=== PATIENT | male | born 1945 | race Caucasian/White ===

== ENCOUNTER 2024-04-06 17:21 | Inpatient (IN) | payer MEDICARE ==
[~2024-04-06] VITALS: Ht 167.6 cm; Wt 41.8 kg
[2024-04-06] MEDS ORDERED: HUMALOG100 UNIT/1 SC (17:51)
[2024-04-06] MEDS ORDERED: SYNTHROID25 MCG PO (17:52)
[2024-04-06] MEDS ORDERED: VAZALORE81 MG PO (17:52)
[2024-04-06] MEDS ORDERED: FLOMAX0.4 MG PO (17:52)
[2024-04-06] MEDS ORDERED: COZAAR25 M1 PO (17:53)
[2024-04-06] MEDS ORDERED: PROSCAR5 M1 PO (17:53)
[2024-04-06] MEDS ORDERED: LIPITOR40 MG PO (17:53)
[2024-04-06] MEDS ORDERED: COLACE 2-IN-11 EACH PO (17:55)
[2024-04-06] MEDS ORDERED: AVAPRO75 MG PO (17:56)
[2024-04-06] MEDS ORDERED: CALCIUM MAGNES1 EACH PO (17:56)
[2024-04-06] MEDS ORDERED: CREON 3000 PO (17:57)
[2024-04-06] MEDS ORDERED: CIALIS5 MG PO (17:57)
[2024-04-06] MEDS ORDERED: UROXATRAL10 MG PO (17:57)
[2024-04-06] MEDS ORDERED: OMEGA 3 1,0001 EACH PO (17:58)
[2024-04-06] MEDS ORDERED: METFORMIN HYDR500 MG PO (17:58)
[2024-04-06] MEDS ORDERED: MELATONIN1 MG PO (17:59)
[2024-04-06 22:55] VITALS: BP 127/78
[2024-04-06] MEDS ORDERED: Magnesium Hydroxide 30 ML UDC PO PRN (23:50)
[2024-04-06] MEDS ORDERED: ACETAMINOPHEN 325 MG TAB PO PRN (23:50)
[2024-04-06] MEDS ORDERED: MG-AL HYDROXIDE/SIMETICONE 30 ML UDC PO PRN (23:50)
[2024-04-06] MEDS ORDERED: Menthol/Zinc Oxide 4 GM THIN T PRN (23:55)
[2024-04-07] MEDS ORDERED: LEVOTHYROXINE25 MCG PO (00:04)
[2024-04-07] MEDS ORDERED: PROSCAR5 M1 PO (00:05)
[2024-04-07] MEDS ORDERED: DEXTROSE 10 % IN WATER 250 ML IV PRN (00:05)
[2024-04-07] MEDS ORDERED: LIPITOR40 MG PO (00:05)
[2024-04-07] MEDS ORDERED: ACETAMINOPHEN325 M2 PO (00:31)
[2024-04-07] MEDS ORDERED: ASPIRIN81 M1 PO (00:37)
[2024-04-07] MEDS ORDERED: ALFUZOSIN HCL E10 MG PO (00:37)
[2024-04-07] MEDS ORDERED: AMLODIPINE BESYL5 MG PO (00:37)
[2024-04-07] MEDS ORDERED: ATIVAN1 MG PO (00:38)
[2024-04-07] MEDS ORDERED: CALCIUM 600+D1 EAC4 PO (00:40)
[2024-04-07] MEDS ORDERED: CREON DR 36,001 EAC1 PO (00:40)
[2024-04-07] MEDS ORDERED: DEPAKOTE250 MG PO (00:41)
[2024-04-07] MEDS ORDERED: EXELON1 EAC1 T (00:42)
[2024-04-07] MEDS ORDERED: DEPAKOTE500 M2 PO (00:42)
[2024-04-07] MEDS ORDERED: IRON325 M3 PO (00:43)
[2024-04-07] MEDS ORDERED: OMEGA 3-6-9 11200 MG PO (00:44)
[2024-04-07] MEDS ORDERED: MIRALAX POWDER17 G1 PO (00:45)
[2024-04-07] MEDS ORDERED: GLIPIZIDE5 M1 PO (00:45)
[2024-04-07] MEDS ORDERED: MELATONIN5 M1 SL (00:46)
[2024-04-07] MEDS ORDERED: LOPRESSOR25 MG PO (00:47)
[2024-04-07] MEDS ORDERED: NAMENDA-28 PO (00:48)
[2024-04-07] MEDS ORDERED: PROTONIX40 MG PO (00:49)
[2024-04-07] MEDS ORDERED: PLAVIX75 M1 PO (00:49)
[2024-04-07] MEDS ORDERED: EFFER-K25 MEQ PO (00:52)
[2024-04-07] MEDS ORDERED: Synthroid,Levo25 MCG PO (00:53)
[2024-04-07] MEDS ORDERED: RISPERDAL0.5 MG PO (00:53)
[2024-04-07] MEDS ORDERED: VITAMIN C1000 M5 PO (00:54)
[2024-04-07] MEDS ORDERED: INSULIN LISPRO 1 UNIT/0.01 ML SQ SCH (07:30)
[2024-04-07 08:00] LABS: BASO % 0.2 % (0.0-1.0); EOS # 0.1 10*3/uL (0.0-0.4); EOS % 1.1 % (1.0-4.0); LYMPH # 0.7 10*3/uL (1.3-4.4); LYMPH % 14.6 % (27.0-41.0); MEAN CELL VOLUME 95.7 fl (80.0-94.0); MEAN CORPUSCULAR HGB 31.1 pg (27.0-31.0); MEAN CORPUSCULAR HGB CONC 32.5 g/dl (33.0-37.0); MEAN PLATELET VOLUME 10.4 fl (9.6-12.3); MONO # 0.5 10*3/uL (0.1-1.0); MONO % 10.6 % (3.0-9.0); NEUT # 3.3 10*3/uL (2.3-7.9); NEUT % 73.1 % (47.0-73.0); PLATELET COUNT AUTOMATED 141 10*3/uL (130-400); RED BLOOD COUNT 3.76 10*6/uL (4.50-5.90); RED CELL DISTRI WIDTH 15.5 % (0-14.5); WHITE BLOOD COUNT 4.5 10*3/uL (4.8-10.8)
[2024-04-07 08:42] LABS: ALKALINE PHOSPHATASE 80 U/L (46-116); BUN 28 mg/dl (9-23); CHLORIDE 105 mmol/L (98-107); CHOLESTEROL 151 mg/dL (<200); LDL CHOLESTEROL 84 mg/dL (9-159); POTASSIUM 3.6 mmol/L (3.4-5.1); SGPT/ALT 14 U/L (5-49); TOTAL PROTEIN 6.8 gm/dL (6.0-8.0); TRIGLYCERIDES 61 mg/dl (<150)
[2024-04-07 08:48] LABS: VITAMIN D, 25-HYDROXY 31.1 ng/mL (30-100)
[2024-04-07] MEDS ORDERED: DIVALPROEX (DR) 250 MG TAB PO SCH (09:00)
[2024-04-07] MEDS ORDERED: RISPERIDONE 0.5 MG TAB PO SCH (09:00)
[2024-04-07] MEDS ORDERED: Memantine Hydrochloride 10 MG TAB PO SCH (09:00)
[2024-04-07] MEDS ORDERED: RIVASTIGMINE 13.3 MG/24 HR TDM T SCH (09:00)
[2024-04-07] MEDS ORDERED: LORazepam 1 MG TAB PO PRN (10:30)
[2024-04-07 20:00] VITALS: BP 135/84
[2024-04-07] MEDS ORDERED: DIVALPROEX (DR) 500 MG TAB PO SCH (21:00)
[2024-04-07] MEDS ORDERED: Metoprolol Tartrate 25 MG TAB PO SCH (21:00)
[2024-04-08 07:47] VITALS: BP 123/82
[2024-04-08] MEDS ORDERED: ASCORBIC ACID 500 MG TAB PO SCH (09:00)
[2024-04-08] MEDS ORDERED: ALFUZOSIN HYDROCHLORIDE 10 MG PO SCH ×2 (09:00)
[2024-04-08] MEDS ORDERED: Levothyroxine Sodium 25 MCG TAB PO SCH (09:00)
[2024-04-08] MEDS ORDERED: Pantoprazole Sodium 40 MG TAB PO SCH (09:00)
[2024-04-08] MEDS ORDERED: Fish Oil 500 MG CAP PO SCH (09:00)
[2024-04-08] MEDS ORDERED: CALCIUM CARBONATE/VITAMIN D3 500 MG/200 IU TABLET PO SCH (09:00)
[2024-04-08] MEDS ORDERED: FINASTERIDE 5 MG TAB PO SCH (09:00)
[2024-04-08] MEDS ORDERED: ASPIRIN ENTERIC COATED 81 MG TAB PO SCH (09:00)
[2024-04-08] MEDS ORDERED: amLODIPine besylate 5 MG TAB PO SCH (09:00)
[2024-04-08] MEDS ORDERED: Clopidogrel Hydrogen Sulfate 75 MG TAB PO SCH (09:00)
[2024-04-08] MEDS ORDERED: ATORVASTATIN CALCIUM 40 MG TABLET PO SCH (09:00)
[2024-04-08 20:00] VITALS: BP 121/75
[2024-04-08] MEDS ORDERED: RAMELTEON 8 MG TAB PO SCH (21:00)
[2024-04-09] MEDS ORDERED: FERROUS SULFATE 325 MG TAB PO SCH (10:00)
[2024-04-09 20:00] VITALS: BP 103/60
[2024-04-10 07:52] VITALS: BP 102/76
[2024-04-10 20:00] VITALS: BP 105/67
[2024-04-10] MEDS ORDERED: RISPERIDONE 1 MG TAB PO SCH (21:00)
[2024-04-11 08:29] VITALS: BP 117/78
[2024-04-11] MEDS ORDERED: RISPERIDONE 0.5 MG TAB PO SCH (09:00)
[2024-04-11 20:00] VITALS: BP 130/64
[2024-04-12] MEDS ORDERED: Levothyroxine Sodium 25 MCG TAB PO SCH (06:00)
[2024-04-12 06:14] LABS: ALKALINE PHOSPHATASE 66 U/L (46-116); BUN 22 mg/dl (9-23); CHLORIDE 105 mmol/L (98-107); POTASSIUM 3.8 mmol/L (3.4-5.1); SGPT/ALT 12 U/L (5-49); TOTAL PROTEIN 5.6 gm/dL (6.0-8.0)
[2024-04-12 06:27] LABS: BASO % 1.1 % (0.0-1.0); EOS % 1.5 % (1.0-4.0); HEMATOCRIT 31.6 % (42.0-52.0); LYMPH # 0.7 10*3/uL (1.3-4.4); LYMPH % 28.4 % (27.0-41.0); MEAN CELL VOLUME 97.2 fl (80.0-94.0); MEAN CORPUSCULAR HGB 30.8 pg (27.0-31.0); MEAN CORPUSCULAR HGB CONC 31.6 g/dl (33.0-37.0); MEAN PLATELET VOLUME 10.8 fl (9.6-12.3); MONO # 0.5 10*3/uL (0.1-1.0); MONO % 18.8 % (3.0-9.0); NEUT # 1.3 10*3/uL (2.3-7.9); NEUT % 49.8 % (47.0-73.0); PLATELET COUNT AUTOMATED 129 10*3/uL (130-400); RED BLOOD COUNT 3.25 10*6/uL (4.50-5.90); RED CELL DISTRI WIDTH 15.9 % (0-14.5); WHITE BLOOD COUNT 2.6 10*3/uL (4.8-10.8)
[2024-04-12 07:17] VITALS: BP 111/61
[2024-04-12 20:00] VITALS: BP 135/70
[2024-04-13 08:00] VITALS: BP 106/52
[2024-04-13 20:00] VITALS: BP 105/56
[2024-04-14 08:00] VITALS: BP 103/54
[2024-04-14 20:00] VITALS: BP 108/68
[2024-04-15 08:09] VITALS: BP 96/59
[2024-04-15 11:16] VITALS: BP 109/59
[2024-04-15 20:00] VITALS: BP 102/50
[2024-04-16 08:00] VITALS: BP 116/74
[2024-04-16] MEDS ORDERED: MEMANTINE HCL10 MG PO (09:21)
[2024-04-16] MEDS ORDERED: RIVASTIGMINE1 EAC2 T (09:21)
[2024-04-16] MEDS ORDERED: RISPERIDONE0.5 MG PO (09:21)
[2024-04-16] MEDS ORDERED: RISPERDAL1 M1 PO (09:21)
== END 2024-04-16 13:05 | DRG 57 ==
LOC: 3N 17:21
PROVIDERS: Nurse Practitioner; ADMIT Psychiatry & Neurology Psychiatry; ATTEND Psychiatry & Neurology Psychiatry
DX: G30.9 Alzheimer's disease, unspecified (principal); F02.818 Dementia in other diseases classified elsewhere, unspecified severity, with other behavioral disturbance; E11.65 Type 2 diabetes mellitus with hyperglycemia; F23 Brief psychotic disorder; F34.9 Persistent mood [affective] disorder, unspecified; D53.9 Nutritional anemia, unspecified; F41.1 Generalized anxiety disorder; I10 Essential (primary) hypertension; E78.5 Hyperlipidemia, unspecified; E03.9 Hypothyroidism, unspecified; E11.51 Type 2 diabetes mellitus with diabetic peripheral angiopathy without gangrene; E78.2 Mixed hyperlipidemia; D72.819 Decreased white blood cell count, unspecified; N40.0 Benign prostatic hyperplasia without lower urinary tract symptoms; Z00.8 Encounter for other general examination

== ENCOUNTER 2024-04-06 17:27 | Emergency (ER) | payer MEDICARE ==
[~2024-04-06] VITALS: Ht 185.4 cm
[2024-04-06] MEDS ORDERED: HUMALOG100 UNIT/1 SC (17:51)
[2024-04-06] MEDS ORDERED: FLOMAX0.4 MG PO (17:52)
[2024-04-06] MEDS ORDERED: SYNTHROID25 MCG PO (17:52)
[2024-04-06] MEDS ORDERED: VAZALORE81 MG PO (17:52)
[2024-04-06] MEDS ORDERED: COZAAR25 M1 PO (17:53)
[2024-04-06] MEDS ORDERED: LIPITOR40 MG PO (17:53)
[2024-04-06] MEDS ORDERED: PROSCAR5 M1 PO (17:53)
[2024-04-06] MEDS ORDERED: COLACE 2-IN-11 EACH PO (17:55)
[2024-04-06] MEDS ORDERED: AVAPRO75 MG PO (17:56)
[2024-04-06] MEDS ORDERED: CALCIUM MAGNES1 EACH PO (17:56)
[2024-04-06] MEDS ORDERED: CIALIS5 MG PO (17:57)
[2024-04-06] MEDS ORDERED: UROXATRAL10 MG PO (17:57)
[2024-04-06] MEDS ORDERED: CREON 3000 PO (17:57)
[2024-04-06] MEDS ORDERED: OMEGA 3 1,0001 EACH PO (17:58)
[2024-04-06] MEDS ORDERED: METFORMIN HYDR500 MG PO (17:58)
[2024-04-06] MEDS ORDERED: MELATONIN1 MG PO (17:59)
[2024-04-06 18:09] LABS: BASO % 0.4 % (0.0-1.0); EOS % 0.4 % (1.0-4.0); HEMATOCRIT 32.5 % (42.0-52.0); LYMPH # 0.6 10*3/uL (1.3-4.4); LYMPH % 12.3 % (27.0-41.0); MONO # 0.6 10*3/uL (0.1-1.0); MONO % 11.5 % (3.0-9.0); NEUT # 3.6 10*3/uL (2.3-7.9); PLATELET COUNT AUTOMATED 119 10*3/uL (130-400); RED BLOOD COUNT 3.35 10*6/uL (4.50-5.90); RED CELL DISTRI WIDTH 15.5 % (0-14.5); WHITE BLOOD COUNT 4.8 10*3/uL (4.8-10.8)
[2024-04-06 18:19] LABS: ACT PARTIAL THROMBO TIME 24.8 SECONDS (20.0-32.1)
[2024-04-06 18:29] LABS: BILIRUBIN Negative (Negative); BLOOD Negative (Negative); CLARITY Clear (Clear); COLOR Yellow (Yellow); GLUCOSE Negative (Negative); KETONE Trace (Negative); LEUKO ESTERASE Negative (Negative); NITRITE Negative (Negative); PH 5.5 (4.5-8.0)
[2024-04-06 18:30] LABS: ALKALINE PHOSPHATASE 76 U/L (46-116); BUN 36 mg/dl (9-23); CHLORIDE 108 mmol/L (98-107); POTASSIUM 3.7 mmol/L (3.4-5.1); SGPT/ALT 14 U/L (5-49); TOTAL PROTEIN 6.2 gm/dL (6.0-8.0)
[2024-04-06 18:31] LABS: ETHYL ALCOHOL < 3.0 mg/dl (<3)
[2024-04-06 18:37] LABS: URINE AMPHETAMINES Negative (1000ng/ml); URINE BARBITURATES Negative (200ng/ml); URINE BENZODIAZEPINES Negative (200ng/ml); URINE CANNABINOIDS (THC) Negative (50ng/ml); URINE COCAINE Negative (300ng/ml); URINE METHADONE Negative (300ng/ml); URINE OPIATES Negative (300ng/ml); URINE PHENCYCLIDINE Negative (25ng/ml)
[2024-04-06 18:39] LABS: CALCIUM OXALATE CRYSTALS Trace; MUCOUS 2+
[2024-04-07] MEDS ORDERED: LEVOTHYROXINE25 MCG PO (00:04)
[2024-04-07] MEDS ORDERED: LIPITOR40 MG PO (00:05)
[2024-04-07] MEDS ORDERED: PROSCAR5 M1 PO (00:05)
[2024-04-07] MEDS ORDERED: ACETAMINOPHEN325 M2 PO (00:31)
[2024-04-07] MEDS ORDERED: ALFUZOSIN HCL E10 MG PO (00:37)
[2024-04-07] MEDS ORDERED: AMLODIPINE BESYL5 MG PO (00:37)
[2024-04-07] MEDS ORDERED: ASPIRIN81 M1 PO (00:37)
[2024-04-07] MEDS ORDERED: ATIVAN1 MG PO (00:38)
[2024-04-07] MEDS ORDERED: CREON DR 36,001 EAC1 PO (00:40)
[2024-04-07] MEDS ORDERED: CALCIUM 600+D1 EAC4 PO (00:40)
[2024-04-07] MEDS ORDERED: DEPAKOTE250 MG PO (00:41)
[2024-04-07] MEDS ORDERED: EXELON1 EAC1 T (00:42)
[2024-04-07] MEDS ORDERED: DEPAKOTE500 M2 PO (00:42)
[2024-04-07] MEDS ORDERED: IRON325 M3 PO (00:43)
[2024-04-07] MEDS ORDERED: OMEGA 3-6-9 11200 MG PO (00:44)
[2024-04-07] MEDS ORDERED: MIRALAX POWDER17 G1 PO (00:45)
[2024-04-07] MEDS ORDERED: GLIPIZIDE5 M1 PO (00:45)
[2024-04-07] MEDS ORDERED: MELATONIN5 M1 SL (00:46)
[2024-04-07] MEDS ORDERED: LOPRESSOR25 MG PO (00:47)
[2024-04-07] MEDS ORDERED: NAMENDA-28 PO (00:48)
[2024-04-07] MEDS ORDERED: PLAVIX75 M1 PO (00:49)
[2024-04-07] MEDS ORDERED: PROTONIX40 MG PO (00:49)
[2024-04-07] MEDS ORDERED: EFFER-K25 MEQ PO (00:52)
[2024-04-07] MEDS ORDERED: Synthroid,Levo25 MCG PO (00:53)
[2024-04-07] MEDS ORDERED: RISPERDAL0.5 MG PO (00:53)
[2024-04-07] MEDS ORDERED: VITAMIN C1000 M5 PO (00:54)
== END 2024-04-06 19:49 ==
LOC: ED 17:27
PROVIDERS: Emergency Medicine
DX: Z04.6 Encounter for general psychiatric examination, requested by authority (principal); Z20.822 Contact with and (suspected) exposure to COVID-19; F03.90 Unspecified dementia, unspecified severity, without behavioral disturbance, psychotic disturbance, mood disturbance, and anxiety; E11.9 Type 2 diabetes mellitus without complications; I10 Essential (primary) hypertension

== ENCOUNTER 2024-05-04 13:15 | Inpatient (IN) | payer MEDICARE, OTHER ==
[~2024-05-04] VITALS: Ht 172.7 cm; Wt 52.3 kg
[~2024-05-04 13:15] MED LIST: ACETAMINOPHEN325 M2 PO; ALFUZOSIN HCL E10 MG PO; AMLODIPINE BESYL5 MG PO; ASPIRIN81 M1 PO; ATIVAN1 MG PO; AVAPRO75 MG PO; CALCIUM 600+D1 EAC4 PO; CALCIUM MAGNES1 EACH PO; CIALIS5 MG PO; COLACE 2-IN-11 EACH PO; COZAAR25 M1 PO; CREON 3000 PO; CREON DR 36,001 EAC1 PO; DEPAKOTE250 MG PO; DEPAKOTE500 M2 PO; EFFER-K25 MEQ PO; EXELON1 EAC1 T; FLOMAX0.4 MG PO; GLIPIZIDE5 M1 PO; HUMALOG100 UNIT/1 SC; IRON325 M3 PO; LEVOTHYROXINE25 MCG PO; LIPITOR40 MG PO; LOPRESSOR25 MG PO; MELATONIN1 MG PO; MELATONIN5 M1 SL; MEMANTINE HCL10 MG PO; METFORMIN HYDR500 MG PO; MIRALAX POWDER17 G1 PO; NAMENDA-28 PO; OMEGA 3 1,0001 EACH PO; OMEGA 3-6-9 11200 MG PO; PLAVIX75 M1 PO; PROSCAR5 M1 PO; PROTONIX40 MG PO; RISPERDAL0.5 MG PO; RISPERDAL1 M1 PO; RISPERIDONE0.5 MG PO; RIVASTIGMINE1 EAC2 T; SYNTHROID25 MCG PO; Synthroid,Levo25 MCG PO; UROXATRAL10 MG PO; VAZALORE81 MG PO; VITAMIN C1000 M5 PO
[2024-05-04] MEDS ORDERED: ACETAMINOPHEN 325 MG TAB PO PRN (14:35)
[2024-05-04] MEDS ORDERED: Polyethylene Glycol 3350 17 GM PACKET PO PRN (15:10)
[2024-05-04] MEDS ORDERED: FLOMAX0.4 MG PO (15:22)
[2024-05-04] MEDS ORDERED: GLIPIZIDE5 MG PO (15:25)
[2024-05-04] MEDS ORDERED: LOPERAMIDE HCL2 MG PO (16:26)
[2024-05-04] MEDS ORDERED: LORazepam 1 MG TAB PO PRN (16:35)
[2024-05-04] MEDS ORDERED: LORazepam 2 MG/ML VIAL IM PRN (16:35)
[2024-05-04] MEDS ORDERED: Ziprasidone Mesylate 20 MG VIAL IM PRN (16:40)
[2024-05-04] MEDS ORDERED: Water, Sterile 10 ML VIAL IM PRN (16:40)
[2024-05-04] MEDS ORDERED: MG-AL HYDROXIDE/SIMETICONE 30 ML UDC PO PRN (18:20)
[2024-05-04] MEDS ORDERED: Magnesium Hydroxide 30 ML UDC PO PRN (18:20)
[2024-05-04] MEDS ORDERED: Menthol/Zinc Oxide 4 GM THIN T PRN (18:30)
[2024-05-04] MEDS ORDERED: Mirtazapine 15 MG TAB PO SCH (21:00)
[2024-05-04] MEDS ORDERED: RISPERIDONE 1 MG TAB PO SCH (21:00)
[2024-05-04] MEDS ORDERED: Memantine Hydrochloride 10 MG TAB PO SCH (21:00)
[2024-05-04 21:07] VITALS: BP 117/61
[2024-05-05] MEDS ORDERED: Levothyroxine Sodium 25 MCG TAB PO SCH (06:00)
[2024-05-05 07:08] LABS: BASO % 0.8 % (0.0-1.0); EOS # 0.1 10*3/uL (0.0-0.4); EOS % 1.4 % (1.0-4.0); HEMATOCRIT 33.7 % (42.0-52.0); LYMPH # 0.7 10*3/uL (1.3-4.4); LYMPH % 18.1 % (27.0-41.0); MEAN CELL VOLUME 95.5 fl (80.0-94.0); MEAN CORPUSCULAR HGB 30.9 pg (27.0-31.0); MEAN CORPUSCULAR HGB CONC 32.3 g/dl (33.0-37.0); MEAN PLATELET VOLUME 9.1 fl (9.6-12.3); MONO # 0.4 10*3/uL (0.1-1.0); MONO % 9.5 % (3.0-9.0); NEUT # 2.6 10*3/uL (2.3-7.9); NEUT % 69.9 % (47.0-73.0); PLATELET COUNT AUTOMATED 231 10*3/uL (130-400); RED BLOOD COUNT 3.53 10*6/uL (4.50-5.90); RED CELL DISTRI WIDTH 14.6 % (0-14.5); WHITE BLOOD COUNT 3.7 10*3/uL (4.8-10.8)
[2024-05-05 07:28] LABS: ALKALINE PHOSPHATASE 76 U/L (46-116); BUN 20 mg/dl (9-23); CHLORIDE 105 mmol/L (98-107); CHOLESTEROL 110 mg/dL (<200); LDL CHOLESTEROL 53 mg/dL (9-159); POTASSIUM 3.8 mmol/L (3.4-5.1); SGPT/ALT 26 U/L (5-49); TRIGLYCERIDES 71 mg/dl (<150)
[2024-05-05] MEDS ORDERED: glipiZIDE 5 MG TAB PO SCH (07:30)
[2024-05-05] MEDS ORDERED: AMYLASE/LIPASE/PROTEASE 12,000 UNITS CAP PO SCH (07:30)
[2024-05-05 08:00] VITALS: BP 114/67
[2024-05-05 08:17] LABS: VITAMIN D, 25-HYDROXY 30.7 ng/mL (30-100)
[2024-05-05] MEDS ORDERED: Tamsulosin Hydrochloride 0.4 MG CAP PO SCH (09:00)
[2024-05-05] MEDS ORDERED: Fish Oil 1,000 MG CAP PO SCH (09:00)
[2024-05-05] MEDS ORDERED: CALCIUM CARBONATE/VITAMIN D3 500 MG/200 IU TABLET PO SCH (09:00)
[2024-05-05] MEDS ORDERED: ASPIRIN ENTERIC COATED 81 MG TAB PO SCH (09:00)
[2024-05-05] MEDS ORDERED: ASCORBIC ACID 500 MG TAB PO SCH (09:00)
[2024-05-05] MEDS ORDERED: FINASTERIDE 5 MG TAB PO SCH (09:00)
[2024-05-05] MEDS ORDERED: RIVASTIGMINE 13.3 MG/24 HR TDM T SCH (09:00)
[2024-05-05] MEDS ORDERED: amLODIPine besylate 5 MG TAB PO SCH (09:00)
[2024-05-05] MEDS ORDERED: FERROUS SULFATE 325 MG TAB PO SCH (09:00)
[2024-05-05 20:00] VITALS: BP 120/75
[2024-05-06 07:41] VITALS: BP 109/63
[2024-05-06] MEDS ORDERED: AMYLASE/LIPASE/PROTEASE 12,000 UNITS CAP PO SCH (13:11)
[2024-05-06 20:00] VITALS: BP 114/63
[2024-05-07 08:00] VITALS: BP 114/67
[2024-05-07 20:00] VITALS: BP 101/65
[2024-05-07 20:32] LABS: BILIRUBIN Negative (Negative); BLOOD 2+ (Negative); CLARITY Cloudy (Clear); COLOR Orange (Yellow); GLUCOSE Negative (Negative); KETONE Negative (Negative); LEUKO ESTERASE 2+ (Negative); NITRITE Positive (Negative); SPECIFIC GRAVITY 1.025 (1.001-1.030); UROBILINOGEN 0.2 E.U./dl (0.0-1.0)
[2024-05-07 20:43] LABS: RBC 41-50 rbc/hpf (0-2); WBC 21-30 wbc/hpf (0-5)
[2024-05-07 20:44] LABS: BACTERIA 3+
[2024-05-07] MEDS ORDERED: CEFDINIR 300 MG CAP PO SCH (22:00)
[2024-05-08 08:00] VITALS: BP 110/87
[2024-05-08 08:20] VITALS: BP 114/69
[2024-05-08 20:56] VITALS: BP 114/73
[2024-05-09 08:25] VITALS: BP 99/58
[2024-05-09 20:00] VITALS: BP 101/80
[2024-05-10 07:40] VITALS: BP 112/63
[2024-05-10] MEDS ORDERED: GUAIFENESIN 600 MG TAB ER PO SCH (09:00)
[2024-05-10] MEDS ORDERED: diphenhydrAMINE hydrochloride 50 MG/ML VIAL IM ONE (09:25)
[2024-05-10 11:16] LABS: BASO % 0.9 % (0.0-1.0); EOS % 0.5 % (1.0-4.0); HEMATOCRIT 34.7 % (42.0-52.0); LYMPH # 0.9 10*3/uL (1.3-4.4); LYMPH % 20.8 % (27.0-41.0); MEAN CELL VOLUME 95.6 fl (80.0-94.0); MEAN CORPUSCULAR HGB 30.6 pg (27.0-31.0); MEAN PLATELET VOLUME 9.2 fl (9.6-12.3); MONO # 0.3 10*3/uL (0.1-1.0); MONO % 6.5 % (3.0-9.0); NEUT # 3.1 10*3/uL (2.3-7.9); NEUT % 71.1 % (47.0-73.0); PLATELET COUNT AUTOMATED 227 10*3/uL (130-400); RED BLOOD COUNT 3.63 10*6/uL (4.50-5.90); RED CELL DISTRI WIDTH 14.3 % (0-14.5); WHITE BLOOD COUNT 4.3 10*3/uL (4.8-10.8)
[2024-05-10 20:00] VITALS: BP 102/61
[2024-05-10] MEDS ORDERED: BENZTROPINE MESYLATE 0.5 MG TAB PO SCH (21:00)
[2024-05-11 07:56] VITALS: BP 111/61
[2024-05-11 20:00] VITALS: BP 111/60
[2024-05-12] MEDS ORDERED: FOAM BANDAGE 4X4 T ONE (07:04)
[2024-05-12] MEDS ORDERED: HYDROGEL WOUND DRESSING T ONE (07:04)
[2024-05-12 20:00] VITALS: BP 118/73
[2024-05-12] MEDS ORDERED: RISPERIDONE 0.5 MG TAB PO SCH (21:00)
[2024-05-13 08:00] VITALS: BP 102/60
[2024-05-13 10:21] LABS: BASO % 0.2 % (0.0-1.0); EOS % 0.2 % (1.0-4.0); HEMATOCRIT 33.8 % (42.0-52.0); LYMPH # 0.5 10*3/uL (1.3-4.4); LYMPH % 7.5 % (27.0-41.0); MEAN CELL VOLUME 96.8 fl (80.0-94.0); MEAN CORPUSCULAR HGB 30.7 pg (27.0-31.0); MEAN CORPUSCULAR HGB CONC 31.7 g/dl (33.0-37.0); MEAN PLATELET VOLUME 9.3 fl (9.6-12.3); MONO # 0.5 10*3/uL (0.1-1.0); MONO % 7.3 % (3.0-9.0); NEUT # 5.5 10*3/uL (2.3-7.9); NEUT % 84.5 % (47.0-73.0); PLATELET COUNT AUTOMATED 200 10*3/uL (130-400); RED BLOOD COUNT 3.49 10*6/uL (4.50-5.90); RED CELL DISTRI WIDTH 14.6 % (0-14.5); WHITE BLOOD COUNT 6.5 10*3/uL (4.8-10.8)
[2024-05-13 10:42] LABS: ALKALINE PHOSPHATASE 72 U/L (46-116); BUN 18 mg/dl (9-23); CHLORIDE 105 mmol/L (98-107); POTASSIUM 3.9 mmol/L (3.4-5.1); SGPT/ALT 20 U/L (5-49); TOTAL PROTEIN 6.1 gm/dL (6.0-8.0)
[2024-05-13 20:00] VITALS: BP 100/56
[2024-05-14 07:52] VITALS: BP 139/71
[2024-05-14] MEDS ORDERED: FOAM BANDAGE 4X4 T ONE (11:40)
[2024-05-14] MEDS ORDERED: HEEL PROTECTOR DEVICE ONE (11:40)
[2024-05-14 19:14] VITALS: BP 151/70
[2024-05-15 08:13] VITALS: BP 98/54
[2024-05-15] MEDS ORDERED: MIRTAZAPINE15 M2 PO (09:50)
[2024-05-15 11:04] VITALS: BP 118/66
== END 2024-05-15 14:06 | disposition hospice, home (50) | DRG 883 ==
LOC: 3N 13:15
PROVIDERS: Counselor Professional; Internal Medicine; ADMIT Psychiatry & Neurology Psychiatry; ATTEND Psychiatry & Neurology Psychiatry
PROC: GZHZZZZ Group Psychotherapy (ICD-10-PCS; principal; 2024-05-05)
PROC: GZ56ZZZ Individual Psychotherapy, Supportive (ICD-10-PCS; 2024-05-05)
DX: F63.81 Intermittent explosive disorder (principal); E11.65 Type 2 diabetes mellitus with hyperglycemia; E44.0 Moderate protein-calorie malnutrition; F02.84 Dementia in other diseases classified elsewhere, unspecified severity, with anxiety; G30.9 Alzheimer's disease, unspecified; I10 Essential (primary) hypertension; I25.10 Atherosclerotic heart disease of native coronary artery without angina pectoris; E03.9 Hypothyroidism, unspecified; N40.0 Benign prostatic hyperplasia without lower urinary tract symptoms; E78.2 Mixed hyperlipidemia; E11.51 Type 2 diabetes mellitus with diabetic peripheral angiopathy without gangrene; D53.9 Nutritional anemia, unspecified; F34.9 Persistent mood [affective] disorder, unspecified; D72.819 Decreased white blood cell count, unspecified; M15.0 Primary generalized (osteo)arthritis; Z79.899 Other long term (current) drug therapy; Z79.01 Long term (current) use of anticoagulants; Z79.2 Long term (current) use of antibiotics; W17.89XA Other fall from one level to another, initial encounter; Y93.89 Activity, other specified; Y92.89 Other specified places as the place of occurrence of the external cause; Y99.8 Other external cause status

== ENCOUNTER 2024-05-04 16:50 | Emergency (ER) | payer MEDICARE, OTHER ==
[~2024-05-04] VITALS: Wt 53.5 kg
[~2024-05-04 16:50] MED LIST changes: +GLIPIZIDE5 MG PO; +LOPERAMIDE HCL2 MG PO
[2024-05-04 18:19] LABS: BASO % 0.6 % (0.0-1.0); EOS % 0.2 % (1.0-4.0); HEMATOCRIT 33.1 % (42.0-52.0); LYMPH # 0.6 10*3/uL (1.3-4.4); LYMPH % 11.3 % (27.0-41.0); MEAN CELL VOLUME 97.1 fl (80.0-94.0); MEAN CORPUSCULAR HGB 30.8 pg (27.0-31.0); MEAN CORPUSCULAR HGB CONC 31.7 g/dl (33.0-37.0); MEAN PLATELET VOLUME 9.6 fl (9.6-12.3); MONO # 0.6 10*3/uL (0.1-1.0); MONO % 10.9 % (3.0-9.0); NEUT # 3.9 10*3/uL (2.3-7.9); NEUT % 76.6 % (47.0-73.0); PLATELET COUNT AUTOMATED 247 10*3/uL (130-400); RED BLOOD COUNT 3.41 10*6/uL (4.50-5.90); RED CELL DISTRI WIDTH 14.3 % (0-14.5); WHITE BLOOD COUNT 5.1 10*3/uL (4.8-10.8)
[2024-05-04 18:33] LABS: BUN 18 mg/dl (9-23); CHLORIDE 105 mmol/L (98-107); POTASSIUM 4.3 mmol/L (3.4-5.1)
[2024-05-04 19:02] LABS: BILIRUBIN Negative (Negative); BLOOD 2+ (Negative); CLARITY Turbid (Clear); COLOR Dark Yellow (Yellow); GLUCOSE Negative (Negative); KETONE Trace (Negative); LEUKO ESTERASE Trace (Negative); NITRITE Negative (Negative); SPECIFIC GRAVITY 1.025 (1.001-1.030)
[2024-05-04 19:11] LABS: MUCOUS 2+; RBC 21-30 rbc/hpf (0-2); URIC ACID CRYSTALS 3+
== END 2024-05-04 22:44 | disposition admitted as inpatient to this hospital (09) ==
LOC: ED 16:50
PROVIDERS: Nurse Practitioner Family
DX: Z04.6 Encounter for general psychiatric examination, requested by authority (principal); Z20.822 Contact with and (suspected) exposure to COVID-19; F03.90 Unspecified dementia, unspecified severity, without behavioral disturbance, psychotic disturbance, mood disturbance, and anxiety; E11.9 Type 2 diabetes mellitus without complications; I10 Essential (primary) hypertension; F41.9 Anxiety disorder, unspecified; Z98.890 Other specified postprocedural states